=== PATIENT | female | born 1945 | race Caucasian/White ===

== ENCOUNTER 2018-12-22 18:29 | Emergency (ER) | payer MEDICARE, BC ==
[~2018-12-22] VITALS: Ht 167.6 cm; Wt 71.7 kg
[~2018-12-22 18:29] MED LIST: ASPI325 PO; CALCIT950 PO; CHOL10002; CYCL0.05OP; Estriol0.1 GM VAG; FERR325 PO; FLUSAL1005 IH; HYDCHLSU PO; IPRAOI; IPRAOI INH; LOTE.5SUSP BOTHEYES; METO25ER PO; OMEG1CAP30 PO; VERAMYST
[2018-12-22 19:16] LABS: BASOPHILS ABSOLUTE AUTO 0.04 K/mm3 (0.00-0.23); BASOPHILS PERCENT AUTO 1 % (0-2); EOSINOPHILS ABSOLUTE AUTO 0.03 K/mm3 (0.00-0.68); EOSINOPHILS PERCENT AUTO 1 % (0-6); Hematocrit 40.6 % (33.0-51.0); Hemoglobin 13.4 g/dL (11.5-16.0); IMMATURE GRAN ABSOLUTE AUTO 0.01 K/mm3 (0.00-0.10); IMMATURE GRAN PERCENT AUTO 0 % (0-1); LYMPHOCYTES PERCENT AUTO 50 % (21-46); MONOCYTES ABSOLUTE AUTO 0.95 K/mm3 (0.16-1.47); MONOCYTES PERCENT AUTO 20 % (4-13); Mean Corpuscular HGB 31.8 pg (26.0-34.0); Mean Corpuscular Volume 96 fL (80-100); Mean Platelet Volume 10.4 fL (9.1-12.4); NEUTROPHILS ABSOLUTE AUTO 1.37 K/mm3 (1.96-9.15); NEUTROPHILS PERCENT AUTO 29 % (41-73); Platelet Count 177 K/mm3 (150-400); RDW Standard Deviation 46.2 fL (35.1-46.3); Red Blood Cell Count 4.22 M/mm3 (3.80-5.20)
[2018-12-22 19:33] LABS: Troponin I 0.025 ng/mL (0.000-0.040)
[2018-12-22 19:35] LABS: Alanine Aminotransfer (ALT/SGP 27 U/L (12-78); Albumin, Blood 2.8 g/dL (3.4-5.0); Albumin/Globulin Ratio 0.8 (0.8-1.8); Alk Phos 71 U/L (50-136); Anion Gap 8 mmol/L (6-16); Aspartate Aminotrans (AST/SGOT 34 U/L (12-37); Bilirubin, Total 0.3 mg/dL (0.1-1.0); Blood Urea Nitrogen 19 mg/dL (8-24); CO2, Blood 26 mmol/L (21-32); Chloride, Blood 104 mmol/L (98-108); Creatinine, Blood 0.86 mg/dL (0.40-1.00); Globulin, Blood 3.5 g/dL (2.2-4.0); Glomerular Filtration Rate >60 (60-); Glucose, Blood 112 mg/dL (70-99); Potassium, Blood 3.2 mmol/L (3.5-5.5); Sodium, Blood 138 mmol/L (136-145); Total Protein, Blood 6.3 g/dL (6.4-8.2)
== END 2018-12-22 22:08 | disposition home or self-care (01) ==
LOC: ER 18:29
PROVIDERS: Emergency Medicine
DX: R55 Syncope and collapse (principal); E86.0 Dehydration; J98.4 Other disorders of lung; Z79.899 Other long term (current) drug therapy; Z79.82 Long term (current) use of aspirin; J45.909 Unspecified asthma, uncomplicated; I48.91 Unspecified atrial fibrillation; E78.5 Hyperlipidemia, unspecified; Z87.891 Personal history of nicotine dependence
CPT/HCPCS: 80053; 83690; 84484; 85025; 93005; 93010; 99284-25; J7120

== ENCOUNTER → 2019-06-25 | Outpatient (CLI) | payer MEDICARE, BC ==
[2019-06-25 16:25] LABS: Source, Urine Clean Catch
[2019-06-25 17:57] LABS: Appearance, Urine Cloudy (Clear); Bilirubin, Urine Neg (Neg); Blood, Urine 1+ (Neg); Color, Urine Yellow (P-Yellow); Glucose Qualitative, Urine Neg (Neg); Ketones, Urine 1+ (Neg); Leukocyte Esterase, Urine 3+ (Neg); Nitrite, Urine Pos (Neg); Protein, Urine 2+ (Neg); Specific Gravity, Urine 1.015 (1.003-1.022); Urobilinogen, Urine 1+ (Normal)
[2019-06-25 18:08] LABS: Bacteria Many /hpf; Red Blood Cells, Urine 0-2 /hpf (0-2); Squamous Epithelial Cells Few /hpf (Few); White Blood Cells, Urine TNTC /hpf (0-5)
== END | disposition home or self-care (01) ==
LOC: LAB 15:49 → LAB SHORT 15:49
PROVIDERS: Obstetrics & Gynecology
DX: R30.0 Dysuria (principal)
CPT/HCPCS: 81001; 87077; 87086; 87186

== ENCOUNTER → 2019-08-20 | Outpatient (CLI) | payer MEDICARE, BC ==
[2019-08-20 17:10] LABS: U Amphetamine Screen Not Detected; U Barbituate Screen Not Detected; U Benzodiazapine Screen Not Detected; U Buprenorphine Screen Not Detected; U Cannabinoids Screen Not Detected; U Cocaine Screen Not Detected; U Methadone Screen Not Detected; U Methamphetamine Screen Not Detected; U Opiates Screen Not Detected; U Oxycodone Screen Not Detected; U Phencyclidine Screen Not Detected; U Propoxyphene Screen Not Detected
== END | disposition home or self-care (01) ==
LOC: OLS 12:00 → LAB SHORT 12:00 → LAB FUT 08-19 19:00
PROVIDERS: Internal Medicine
DX: Z51.81 Encounter for therapeutic drug level monitoring (principal); Z79.891 Long term (current) use of opiate analgesic

== ENCOUNTER → 2019-08-27 | Outpatient (CLI) | payer MEDICARE, BC ==
[2019-08-27 17:20] LABS: Source, Urine Clean Catch
[2019-08-27 18:54] LABS: Bilirubin, Urine Neg (Neg); Blood, Urine 4+ (Neg); Glucose Qualitative, Urine Neg (Neg); Ketones, Urine Neg (Neg); Leukocyte Esterase, Urine 2+ (Neg); Nitrite, Urine Neg (Neg); Protein, Urine 1+ (Neg); Urobilinogen, Urine NORM (Normal)
[2019-08-27 19:10] LABS: Appearance, Urine Clear (Clear); Color, Urine Yellow (P-Yellow)
[2019-08-27 19:11] LABS: Bacteria Many /hpf; Squamous Epithelial Cells Rare /hpf (Few); White Blood Cells, Urine 50-100 /hpf (0-5)
== END | disposition home or self-care (01) ==
LOC: LAB 16:40 → LAB SHORT 16:40
PROVIDERS: Obstetrics & Gynecology
DX: R30.9 Painful micturition, unspecified (principal); N39.0 Urinary tract infection, site not specified
CPT/HCPCS: 81001; 87077; 87086; 87186

== ENCOUNTER → 2019-09-24 | Outpatient (CLI) | payer MEDICARE, BC ==
[2019-09-24 16:54] LABS: Source, Urine Clean Catch
[2019-09-24 18:18] LABS: Bilirubin, Urine Neg (Neg); Blood, Urine 5+ (Neg); Glucose Qualitative, Urine Neg (Neg); Ketones, Urine 1+ (Neg); Leukocyte Esterase, Urine 3+ (Neg); Nitrite, Urine Pos (Neg); Protein, Urine 4+ (Neg); Specific Gravity, Urine 1.015 (1.003-1.022); Urobilinogen, Urine 2+ (Normal)
[2019-09-24 18:34] LABS: Appearance, Urine Cloudy (Clear); Color, Urine Amber (P-Yellow)
[2019-09-24 18:36] LABS: Bacteria Many /hpf; Calcium Oxalate Crystals Few /hpf; Red Blood Cells, Urine TNTC /hpf (0-2); Squamous Epithelial Cells Few /hpf (Few); Transitional Epithelial Cells Few /hpf (0-Rare); White Blood Cells, Urine TNTC /hpf (0-5)
== END ==
LOC: LAB 14:30 → LAB SHORT 14:30
PROVIDERS: Obstetrics & Gynecology
DX: R31.9 Hematuria, unspecified (principal)
CPT/HCPCS: 81001; 87077; 87086; 87186

== ENCOUNTER 2019-10-09 15:40 | Emergency (ER) | payer MEDICARE, BC ==
[~2019-10-09] VITALS: Ht 170.2 cm; Wt 72.6 kg
[2019-10-09] MEDS ORDERED: LIDO700A20 TOP (18:16)
== END 2019-10-09 18:30 | disposition home or self-care (01) ==
LOC: ER 15:40
DX: S22.32XA Fracture of one rib, left side, initial encounter for closed fracture (principal); J45.909 Unspecified asthma, uncomplicated; I48.91 Unspecified atrial fibrillation; E78.5 Hyperlipidemia, unspecified; Z79.899 Other long term (current) drug therapy; Z79.82 Long term (current) use of aspirin; Z87.891 Personal history of nicotine dependence; W01.0XXA Fall on same level from slipping, tripping and stumbling without subsequent striking against object, initial encounter
CPT/HCPCS: 71046; 71120; 99283-25

== ENCOUNTER → 2019-10-30 | Outpatient (CLI) | payer MEDICARE, BC ==
[~2019-10-30] MED LIST changes: +LIDO700A20 TOP
== END | disposition home or self-care (01) ==
LOC: LAB SHORT 18:06 → LAB EV 18:06
DX: N39.0 Urinary tract infection, site not specified (principal)
CPT/HCPCS: 87077; 87086; 87186

== ENCOUNTER 2020-02-25 15:33 | Emergency (ER) | payer MEDICARE, BC ==
[~2020-02-25] VITALS: Ht 165.1 cm; Wt 72.6 kg
[2020-02-25 16:15] LABS: BASOPHILS ABSOLUTE AUTO 0.07 K/mm3 (0.00-0.23); BASOPHILS PERCENT AUTO 1 % (0-2); EOSINOPHILS ABSOLUTE AUTO 0.21 K/mm3 (0.00-0.68); EOSINOPHILS PERCENT AUTO 3 % (0-6); Hematocrit 46.4 % (33.0-51.0); Hemoglobin 15.8 g/dL (11.5-16.0); IMMATURE GRAN ABSOLUTE AUTO 0.01 K/mm3 (0.00-0.10); IMMATURE GRAN PERCENT AUTO 0 % (0-1); LYMPHOCYTES ABSOLUTE AUTO 2.78 K/mm3 (0.84-5.20); LYMPHOCYTES PERCENT AUTO 43 % (21-46); MONOCYTES ABSOLUTE AUTO 0.71 K/mm3 (0.16-1.47); MONOCYTES PERCENT AUTO 11 % (4-13); Mean Corpuscular HGB 32.2 pg (26.0-34.0); Mean Corpuscular HGB Conc 34.1 g/dL (31.5-36.5); Mean Corpuscular Volume 95 fL (80-100); Mean Platelet Volume 10.2 fL (9.1-12.4); NEUTROPHILS ABSOLUTE AUTO 2.67 K/mm3 (1.96-9.15); NEUTROPHILS PERCENT AUTO 41 % (41-73); Platelet Count 224 K/mm3 (150-400); RDW Coefficient Variation 12.8 % (11.7-14.2); Red Blood Cell Count 4.91 M/mm3 (3.80-5.20); White Blood Cell Count 6.45 K/mm3 (4.00-11.30)
[2020-02-25 16:38] LABS: Alanine Aminotransfer (ALT/SGP 20 U/L (12-78); Albumin, Blood 3.5 g/dL (3.4-5.0); Albumin/Globulin Ratio 0.9 (0.8-1.8); Alk Phos 100 U/L (50-136); Anion Gap 3 mmol/L (6-16); Aspartate Aminotrans (AST/SGOT 15 U/L (12-37); Bilirubin, Total 0.5 mg/dL (0.1-1.0); Blood Urea Nitrogen 22 mg/dL (8-24); Bun/Creatinine Ratio 35.4 (12.0-20.0); CO2, Blood 30 mmol/L (21-32); Calcium, Blood 9.7 mg/dL (8.5-10.1); Chloride, Blood 105 mmol/L (98-108); Creatinine, Blood 0.62 mg/dL (0.40-1.00); Globulin, Blood 4.1 g/dL (2.2-4.0); Glomerular Filtration Rate >60 (60-); Glucose, Blood 107 mg/dL (70-99); Potassium, Blood 3.7 mmol/L (3.5-5.5); Sodium, Blood 138 mmol/L (136-145); Total Protein, Blood 7.6 g/dL (6.4-8.2); Troponin I <0.015 ng/mL (0.000-0.040)
== END 2020-02-25 18:07 | disposition home or self-care (01) ==
LOC: ER 15:33
PROVIDERS: Physician Assistant
DX: R00.1 Bradycardia, unspecified (principal); R53.83 Other fatigue; I48.91 Unspecified atrial fibrillation; E78.5 Hyperlipidemia, unspecified; J44.9 Chronic obstructive pulmonary disease, unspecified; Z79.899 Other long term (current) drug therapy; Z79.82 Long term (current) use of aspirin; Z86.718 Personal history of other venous thrombosis and embolism; Z87.891 Personal history of nicotine dependence
CPT/HCPCS: 71046; 80053; 84484; 85025; 93005; 93010; 99284-25

== ENCOUNTER 2020-05-12 13:08 | Day surgery (SDC) | payer MEDICARE, BC ==
[~2020-05-12] VITALS: Ht 165.1 cm; Wt 70.6 kg
[~2020-05-12 13:08] MED LIST changes: +XARELTO20 MG PO
--- NOTE | 2020-05-12 15:48 | NUR ---
05/12/20 1548 Gloria Coats PT BEGINS COUGHING SHORTLY AFTER FIRST DOSE OF PROPOFOL. SUCTIONED CLEAR SECRETIONS. PT CONTINUES TO COUGH THROUGHOUT PROCEDURE. SUCTION DONE NECESSARY, CLEAR SECRETION. PT CLAMPED DOWN ON TONGUE AT ONE POINT AND A SMALL AMOUNT OF BLOOD WAS NOTED IN SUCTION TUBING. DISCUSSED SAME WITH PATIENT AND SHE DENIED ANY PAIN OR SHORTNESS OF BREATH. LUNGS CLEAR IMMEDIATELY POST PROCEDURE AND AGAIN 20 MINUTES LATER. PT NO LONGER COUGHING WHILE BACK IN ROOM. PT DENIES ANY PAIN OR DISCOMFORT, AND THERE WAS NO BLOOD NOTED IN MOUTH POST PROCEDURE.
== END 2020-05-12 15:29 | disposition home or self-care (01) ==
LOC: ORSCSDS 13:08
PROVIDERS: Surgery
PROC: 0DJD8ZZ Inspection of Lower Intestinal Tract, Via Natural or Artificial Opening Endoscopic (ICD-10-PCS; principal; 2020-05-12 14:15)
DX: Z12.11 Encounter for screening for malignant neoplasm of colon (principal); Z87.891 Personal history of nicotine dependence; J45.909 Unspecified asthma, uncomplicated; I48.0 Paroxysmal atrial fibrillation; E78.5 Hyperlipidemia, unspecified; E21.3 Hyperparathyroidism, unspecified; Z79.01 Long term (current) use of anticoagulants; Z79.899 Other long term (current) drug therapy
CPT/HCPCS: J2704; J7120

== ENCOUNTER 2020-12-30 06:36 | Day surgery (SDC) | payer MEDICARE, BC ==
[~2020-12-30] VITALS: Ht 167.6 cm; Wt 75.9 kg
== END 2020-12-30 08:02 | disposition home or self-care (01) ==
LOC: ORSCSDS 06:36
PROVIDERS: Ophthalmology
PROC: 08RK3JZ Replacement of Left Lens with Synthetic Substitute, Percutaneous Approach (ICD-10-PCS; principal; 2020-12-30 07:30)
DX: H25.12 Age-related nuclear cataract, left eye (principal); I10 Essential (primary) hypertension; I48.0 Paroxysmal atrial fibrillation; G47.33 Obstructive sleep apnea (adult) (pediatric); Z79.01 Long term (current) use of anticoagulants; Z79.899 Other long term (current) drug therapy
CPT/HCPCS: J2001; J2250; J3301; J7040; V2632

== ENCOUNTER 2021-05-19 07:28 | Day surgery (SDC) | payer MEDICARE, BC ==
[~2021-05-19] VITALS: Ht 167.6 cm; Wt 75.3 kg
--- NOTE | 2021-05-19 07:39 | NUR ---
05/19/21 0739 Leyla Oneill TETRACAINE DROP PLACED IN RIGHT EYE AT 0739 BY [facility].CB
== END 2021-05-19 09:29 | disposition home or self-care (01) ==
LOC: ORSCSDS 07:28
PROVIDERS: Ophthalmology
PROC: 08RJ3JZ Replacement of Right Lens with Synthetic Substitute, Percutaneous Approach (ICD-10-PCS; principal; 2021-05-19 08:30)
DX: H25.11 Age-related nuclear cataract, right eye (principal); I48.91 Unspecified atrial fibrillation; J45.909 Unspecified asthma, uncomplicated; Z79.01 Long term (current) use of anticoagulants; Z79.899 Other long term (current) drug therapy
CPT/HCPCS: J2001; J2250; J3010; J3301; J7040; V2632

== ENCOUNTER 2022-07-20 02:55 | Emergency (ER) | payer MEDICARE, BC ==
[~2022-07-20] VITALS: Ht 165.1 cm; Wt 65.8 kg
[2022-07-20] MEDS ORDERED: XARELTO20 M1 PO (03:33)
== END 2022-07-20 06:08 | disposition home or self-care (01) ==
LOC: ER 02:55
DX: R04.0 Epistaxis (principal); J45.909 Unspecified asthma, uncomplicated; I48.91 Unspecified atrial fibrillation; E78.5 Hyperlipidemia, unspecified; Z87.891 Personal history of nicotine dependence; Z79.01 Long term (current) use of anticoagulants; Z79.899 Other long term (current) drug therapy
CPT/HCPCS: A9270

== ENCOUNTER → 2022-12-07 | Outpatient (CLI) | payer MEDICARE, BC ==
[~2022-12-07] MED LIST changes: +XARELTO20 M1 PO
[2022-12-07 18:47] LABS: BASOPHILS ABSOLUTE AUTO 0.07 K/mm3 (0.00-0.23); BASOPHILS PERCENT AUTO 1 % (0-2); EOSINOPHILS ABSOLUTE AUTO 0.27 K/mm3 (0.00-0.68); EOSINOPHILS PERCENT AUTO 4 % (0-6); Hematocrit 37.2 % (33.0-51.0); IMMATURE GRAN ABSOLUTE AUTO 0.03 K/mm3 (0.00-0.10); IMMATURE GRAN PERCENT AUTO 0 % (0-1); LYMPHOCYTES PERCENT AUTO 30 % (21-46); MONOCYTES ABSOLUTE AUTO 0.94 K/mm3 (0.16-1.47); MONOCYTES PERCENT AUTO 12 % (4-13); Mean Corpuscular HGB 26.8 pg (26.0-34.0); Mean Corpuscular HGB Conc 32.3 g/dL (31.5-36.5); Mean Corpuscular Volume 83 fL (80-100); Mean Platelet Volume 10.1 fL (9.1-12.4); NEUTROPHILS ABSOLUTE AUTO 4.08 K/mm3 (1.96-9.15); NEUTROPHILS PERCENT AUTO 53 % (41-73); Platelet Count 243 K/mm3 (150-400); RDW Coefficient Variation 19.2 % (11.7-14.2); RDW Standard Deviation 57.1 fL (35.1-46.3); Red Blood Cell Count 4.48 M/mm3 (3.80-5.20); White Blood Cell Count 7.69 K/mm3 (4.00-11.30)
[2022-12-07 19:06] LABS: Albumin, Blood 3.7 g/dL (3.4-5.0); Albumin/Globulin Ratio 0.9 (0.8-1.8); Bilirubin, Total 0.3 mg/dL (0.1-1.0); Bun/Creatinine Ratio 28.2 (12.0-20.0); Calcium, Blood 9.7 mg/dL (8.5-10.1); Creatinine, Blood 0.71 mg/dL (0.40-1.00); Globulin, Blood 4.2 g/dL (2.2-4.0); Potassium, Blood 4.1 mmol/L (3.5-5.5); Thyroid Stimulating Hormone 1.388 uIU/mL (0.360-4.800); Total Protein, Blood 7.9 g/dL (6.4-8.2)
== END | disposition home or self-care (01) ==
LOC: LAB SHORT 18:41
PROVIDERS: Physician Assistant
DX: R07.9 Chest pain, unspecified (principal); R53.83 Other fatigue
CPT/HCPCS: 80053; 84443; 84484; 85025

== ENCOUNTER → 2023-01-04 | Outpatient (CLI) | payer MEDICARE, BC ==
[2023-01-05 09:45] LABS: Stool Occult Bld Immuno 1 Negative (NEGATIVE)
== END | disposition home or self-care (01) ==
LOC: LAB 12:00 → LAB SHORT 12:00
PROVIDERS: Physician Assistant Medical
DX: D50.9 Iron deficiency anemia, unspecified (principal)
CPT/HCPCS: 82274

== ENCOUNTER → 2023-01-11 | Outpatient (CLI) | payer MEDICARE, BC ==
[2023-01-12 09:33] LABS: Stool Occult Bld Immuno 1 Negative (NEGATIVE)
== END | disposition home or self-care (01) ==
LOC: LAB SHORT 12:00 → LAB 12:00 → EDSTATUS 12-05 14:05 → LAB FUT 12-05 14:05
PROVIDERS: Physician Assistant Medical
DX: D50.9 Iron deficiency anemia, unspecified (principal)
CPT/HCPCS: G0328

== ENCOUNTER 2023-07-26 14:05 | Inpatient (IN) | payer MEDICARE, BC ==
[2023-07-26] MEDS ORDERED: WIXELA 250-501 EAC1 IH (15:11)
[2023-07-26] MEDS ORDERED: HYDROCODONE CO120 ML PO (15:15)
[2023-07-26 17:29] LABS: Adenovirus Not Detected (NOT DETECT); Bordetella pertussis Not Detected (NOT DETECT); Chlamydophila pneumoniae Not Detected (NOT DETECT); Coronavirus 229E Not Detected (NOT DETECT); Coronavirus HKU1 Not Detected (NOT DETECT); Coronavirus NL63 Not Detected (NOT DETECT); Coronavirus OC43 Not Detected (NOT DETECT); Human Metapneumovirus Not Detected (NOT DETECT); Human Rhinovirus/Enterovirus Not Detected (NOT DETECT); Influenza A/2009-H1 Not Detected (NOT DETECT); Influenza A/H1 Not Detected (NOT DETECT); Influenza A/H3 Not Detected (NOT DETECT); Influenza B Not Detected (NOT DETECT); Mycoplasma pneumoniae Not Detected (NOT DETECT); Parainfluenza Virus 1 Not Detected (NOT DETECT); Parainfluenza Virus 2 Not Detected (NOT DETECT); Parainfluenza Virus 3 Not Detected (NOT DETECT); Parainfluenza Virus 4 Not Detected (NOT DETECT); Respiratory Syncytial Virus Not Detected (NOT DETECT); SARS-Cov-2 (COVID-19), BioFire Not Detected (NOT DETECT)
[2023-07-26 17:38] VITALS: BP 154/83
--- NOTE | 2023-07-26 17:55 | NUR ---
PT CHART REVEIWED FRO ADMISSION
[2023-07-26 19:26] VITALS: BP 138/85
[2023-07-27 01:32] VITALS: BP 136/66
[2023-07-27 02:53] LABS: Source, Urine Clean Catch
[2023-07-27 02:58] LABS: Bilirubin, Urine Neg (Neg); Blood, Urine 4+ (Neg); Glucose Qualitative, Urine Neg (Neg); Ketones, Urine Neg (Neg); Leukocyte Esterase, Urine 1+ (Neg); Nitrite, Urine Pos (Neg); Protein, Urine 2+ (Neg); Urobilinogen, Urine NORM (Normal)
[2023-07-27 03:06] LABS: Appearance, Urine Hazy (Clear); Bacteria Many /hpf; Color, Urine Yellow (P-Yellow); Red Blood Cells, Urine 0-2 /hpf (0-2); Squamous Epithelial Cells Few /hpf (Few)
--- NOTE | 2023-07-27 04:28 | NUR ---
SHIFT SUMMARY JAKE IS ALERT AND FULLY ORIENTED WITH VERY MILD INTERMITTENT CONFUSION. PT STATED SHE HAD BEEN DEHYDRATED, NS INFUSION STARTED PER EMAR, PT STATES SHE HADNT VOIDED FOR 24 HRS. PT HAD DYSURIA AND WAS BLADDER SCANNED AND FOUND TO HAVE 542ML RETAINED URINE. CALL WAS MADE TO DR CHAPMAN AND AN ORDER WAS RECIEVED TO STRAIGHT CATH IF NECESSARY, AND ALSO TO COLLECT UA. PT EVENTUALLY MANAGED TO VOID 300ML AND CLEAN CATCH URINE SAMPLE WAS SENT TO LAB. NO OTHER ACUTE EVENTS. PT CONTINUES TO HAVE A NON PRODUCTIVE COUGH, RT CONSULTED. SHE IS MAINTAINING O2 SATS IN THE 90S ON 3L O2 VIA NC. PT IS RESTING IN BED IN LOWEST POSITION WITH CALL LIGHT IN PLACE.
--- NOTE | 2023-07-27 05:13 | NUR ---
THIS OUTSOLE SPLICER HAS REVIEWED AND AGREE WITH ALL NOTES AND ASSESSMENTS BY DOMINGO GONZALEZ.
[2023-07-27 07:20] VITALS: BP 150/73
--- NOTE | 2023-07-27 10:53 | NUR ---
NOTE: NOTIFIED BY TELE THAT THE PT HAD WONDERING ATRIAL. PER [employer], WANDERING ATRIAL APPEARED ON THE STRIP. PROVIDER, DR. HERNANDEZ, NOTIFIED AND EKG WILL BE ORDERED.
[2023-07-27 16:54] VITALS: BP 123/64
--- NOTE | 2023-07-27 17:08 | NUR ---
SHIFT SUMMARY PT AOX3-4, A LITTLE CONFUSED UPON WAKING. PT HAS BEEN NAPPING MOST OF THE SHIFT. SHE HAD HAD NO COMPLAINTS. SHE HAS BEEN VOIDING WELL USING THE BSC. PT MEDICATED PER THE EMAR FOR COUGH. PT'S SISTER HAS BEEN AT THE BS THIS SHIFT. CALL LIGHT WITHIN REACH, BED IN THE LOWEST POSITION. WILL REPORT TO ONCOMING NURSE.
[2023-07-27 19:26] VITALS: BP 157/83
[2023-07-28 02:53] VITALS: BP 141/77
--- NOTE | 2023-07-28 05:31 | NUR ---
SHIFT SUMMARY PRN COUGH MEDICATION GIVEN PER PT REQUEST, AMBULATING TO BEDSIDE COMMODE INDEPENDENTLY, VOIDING WITH NO DIFFICULTIES. NO OTHER COMPLAINTS, NO C/O PAIN. FIRE SAFETY REVIEWED, NO IGNITION SOURCES.
[2023-07-28 08:01] VITALS: BP 136/53
[2023-07-28 15:12] VITALS: BP 143/66
--- NOTE | 2023-07-28 17:56 | NUR ---
SHIFT SUMMARY PT A&OX4 AND PLEASANT. PT VERBILZED FEELING VERY TIRED D/T NOT SLEEPING WELL LAST NIGHT. PT ABLE NAP FOR A COUPLE HOURS IN AFTERNOON. NO C/O PAIN. PT STATED STILL FEELING SOB AND NOT BACK TO HER BASELINE YET BUT DID SAY SHE FELT IMPROVED FROM WHEN SHE FIRST ARRIVED. DR HERNANDEZ WOULD LIKE TO TRY TITRATING PT'S OXYGEN DOWN BUT PT STATED SHE DID NOT FEEL READY TO TRY TODAY. EKG DONE AT BEDSIDE TODAY. RESULTS IN CHART. INDPENDENT TO BSC. BED IN LOWEST POSITION AND CALL LIGHT IN REACH.
--- NOTE | 2023-07-28 19:01 | NUR ---
PT HAD 6 SECOND RUN OF SVT IN AFTERNOON, PER [facility] TECH. DR HERNANDEZ AWARE.
[2023-07-28 19:32] VITALS: BP 160/83
--- NOTE | 2023-07-29 04:18 | NUR ---
REPORT RECEIVED VERIFIED PLEASENT PT 2 L NS TO MAINTAIN O2>90. UNEVENTFUL EVENING, RT WAS ABLE TO SITUATE HOME MEDS AND I PLACCED ORDER FOR THEM. PT CALLS AND IS COOPERATIVE WITH CARE.
[2023-07-29 04:57] VITALS: BP 158/74
[2023-07-29 07:20] VITALS: BP 177/61
[2023-07-29 14:48] VITALS: BP 161/68
--- NOTE | 2023-07-29 18:22 | NUR ---
SUMMARY- PT A/O X4, INDEPENDANT TO BEDSIDE COMMODE. ASSISTED WITH SHOWER SET UP. LUNGS DIM LOWER HALF. OCC BARKING COUGH. MEDICATED WITH TUSSIONEX AT 1030 THIS AM, MAY HAVE BEEN HELPFUL. PT ON 3L NC THIS AM, SATTING HIGH 90'S, TURNED DOWN TO 2L THAN TO ROOM AIR, STAYED AT 90%, AFTER SHOWERING, PT TOLERATED ACTIVITY FINE WITH NO NOTIBLE SOB, STATES SHE FELT GREAT, SATS CAME DOWN TO 86% SO REPLACED O2 2L NC, SATS 95%. PLAN TO RE EVAL [place] FOR DC HOPEFULLY WITHOUT OXYGEN. WILL REPORT TO ASHISH LANE.
[2023-07-29 19:59] VITALS: BP 193/80
[2023-07-30 04:25] VITALS: BP 157/85
[2023-07-30 05:01] LABS: Hemoglobin 12.1 g/dL (11.5-16.0); Mean Corpuscular HGB 29.2 pg (26.0-34.0); Mean Corpuscular HGB Conc 33.6 g/dL (31.5-36.5); Mean Corpuscular Volume 87 fL (80-100); Mean Platelet Volume 9.8 fL (9.1-12.4); Platelet Count 335 K/mm3 (150-400); RDW Coefficient Variation 14.7 % (11.7-14.2); RDW Standard Deviation 47.5 fL (35.1-46.3); Red Blood Cell Count 4.15 M/mm3 (3.80-5.20); White Blood Cell Count 9.42 K/mm3 (4.00-11.30)
[2023-07-30 05:39] LABS: Bun/Creatinine Ratio 20.6 (12.0-20.0); Calcium, Blood 9.2 mg/dL (8.5-10.1); Creatinine, Blood 0.39 mg/dL (0.40-1.00); Potassium, Blood 3.7 mmol/L (3.5-5.5)
--- NOTE | 2023-07-30 06:48 | NUR ---
FREQUENTLY REMOVES NC INDEPENDENTLY, DENIES SIGNIFICANT SOB BUT OCCASIONAL COARSE/PRODUCTIVE COUGH NOTED. HYPERTENSIVE AT TIMES BUT GENERALLY VSS ON 1-2 L NC. PLEASANT, AOX4, CALLS APPROPRIATELY, SBA TO BSC FOR BM. 1 3 BEAT RUN OF SVT AFTER WHICH THE PATIENT DENIED SYMPTOMS. NO ACUTE CHANGES NOTED DURING SHIFT. FIRE SAFETY REVIEWED.
[2023-07-30 07:28] VITALS: BP 161/89
--- NOTE | 2023-07-30 09:00 | NUR ---
pt resting in bed awake a/ox4 cooperative with care, follows commands well, denies pain at this time, lungs are dim t/o, on 2 liters 02 at this time, has an occ course cough, resp even and unlabored, hrirr, tele in place running afib per monitor, see strip, no edema noted, ppp+2, cap refill <3sec, vs stable, afebrile, piv site is clear and patent, btx4, abd flat soft nontender, voids without diff, skin c/w/d, maew, sosa, call light in reach.
[2023-07-30] MEDS ORDERED: GUAI600T33 PO (12:02)
[2023-07-30] MEDS ORDERED: VISBIOME 112.51 EACH PO (12:02)
[2023-07-30] MEDS ORDERED: AMOCLA875 PO (12:02)
--- NOTE | 2023-07-30 12:12 | NUR ---
Pt is being discharged to home, had home o2 eval and needs o2, this is being arranged by charge nurse, iv removed intact, will go over instructions lawrence, new medications were faxed to [facility], call light in reach.
--- NOTE | 2023-07-30 18:44 | NUR ---
pt o2 is here, daughter here to take her home via wheelchair, iv was removed intact, went over discharge instructions she verbalized understanding, new meds faxed to [facility], left via wheelchair with daughter in attendence, and all her belongings.
== END 2023-07-30 18:30 | disposition home or self-care (01) | DRG 871 ==
LOC: ER 14:05 → MEDS 15:42
PROVIDERS: Internal Medicine; ADMIT Internal Medicine
DX: A41.9 Sepsis, unspecified organism (principal); J18.9 Pneumonia, unspecified organism; J96.01 Acute respiratory failure with hypoxia; I48.20 Chronic atrial fibrillation, unspecified; J44.0 Chronic obstructive pulmonary disease with (acute) lower respiratory infection; E87.1 Hypo-osmolality and hyponatremia; I48.91 Unspecified atrial fibrillation; E78.5 Hyperlipidemia, unspecified; Z20.822 Contact with and (suspected) exposure to COVID-19; Z86.718 Personal history of other venous thrombosis and embolism; Z79.01 Long term (current) use of anticoagulants; Z79.52 Long term (current) use of systemic steroids; Z96.659 Presence of unspecified artificial knee joint; Z90.10 Acquired absence of unspecified breast and nipple; Z98.890 Other specified postprocedural states; Z87.891 Personal history of nicotine dependence
CPT/HCPCS: 0202U; 36415; 71046; 80048; 80053; 81001; 84145; 85025; 85027; 87040; 87086; 93005; 93010; 94640; 94664; 94762; 96365; 99285-25; A9270; J0696; J7030; J7050

== ENCOUNTER → 2024-07-28 | Outpatient (CLI) | payer MEDICARE, BC ==
[~2024-07-28] MED LIST changes: +AMOCLA875 PO; +AZIT500 PO; +CEFP200 PO; +CHLORPHENIRAMINE; +DILT180 PO; +GUAI600T33 PO; +HYDROCODONE; +HYDROCODONE CO120 ML PO; +PRED20 PO; +SPIRIVA RESPIMAT4 G3 IH; +VISBIOME 112.51 EACH PO; +WIXELA 250-501 EAC1 IH
[2024-07-28 12:29] LABS: BASOPHILS ABSOLUTE AUTO 0.03 K/mm3 (0.00-0.23); BASOPHILS PERCENT AUTO 0 % (0-2); EOSINOPHILS PERCENT AUTO 0 % (0-6); Hematocrit 41.3 % (33.0-51.0); Hemoglobin 13.9 g/dL (11.5-16.0); IMMATURE GRAN ABSOLUTE AUTO 0.08 K/mm3 (0.00-0.10); IMMATURE GRAN PERCENT AUTO 1 % (0-1); LYMPHOCYTES ABSOLUTE AUTO 0.85 K/mm3 (0.84-5.20); LYMPHOCYTES PERCENT AUTO 7 % (21-46); MONOCYTES ABSOLUTE AUTO 1.11 K/mm3 (0.16-1.47); MONOCYTES PERCENT AUTO 10 % (4-13); Mean Corpuscular HGB 30.2 pg (26.0-34.0); Mean Corpuscular HGB Conc 33.7 g/dL (31.5-36.5); Mean Corpuscular Volume 90 fL (80-100); Mean Platelet Volume 10.2 fL (9.1-12.4); NEUTROPHILS ABSOLUTE AUTO 9.65 K/mm3 (1.96-9.15); NEUTROPHILS PERCENT AUTO 82 % (41-73); Platelet Count 238 K/mm3 (150-400); RDW Coefficient Variation 14.9 % (11.7-14.2); RDW Standard Deviation 48.7 fL (35.1-46.3); Red Blood Cell Count 4.61 M/mm3 (3.80-5.20); White Blood Cell Count 11.72 K/mm3 (4.00-11.30)
[2024-07-28 12:47] LABS: Albumin/Globulin Ratio 0.6 (0.8-1.8); Bilirubin, Total 0.6 mg/dL (0.1-1.0); Bun/Creatinine Ratio 22.4 (12.0-20.0); Calcium, Blood 9.1 mg/dL (8.5-10.1); Creatinine, Blood 0.76 mg/dL (0.40-1.00); Globulin, Blood 4.9 g/dL (2.2-4.0); Potassium, Blood 3.9 mmol/L (3.5-5.5); Total Protein, Blood 7.9 g/dL (6.4-8.2)
== END ==
LOC: LAB 12:26 → LAB SHORT 12:26
PROVIDERS: Physician Assistant
DX: J18.9 Pneumonia, unspecified organism (principal)
CPT/HCPCS: 80053; 85025

== ENCOUNTER 2024-07-29 12:23 | Inpatient (IN) | payer MEDICARE, BC ==
[~2024-07-29] VITALS: Ht 165.1 cm; Wt 64.6 kg
[~2024-07-29 12:23] MED LIST changes: -AZIT500 PO; -CEFP200 PO; -CHLORPHENIRAMINE; -DILT180 PO; -HYDROCODONE; -PRED20 PO; -SPIRIVA RESPIMAT4 G3 IH
[2024-07-29 14:12] LABS: BASOPHILS ABSOLUTE AUTO 0.03 K/mm3 (0.00-0.23); BASOPHILS PERCENT AUTO 0 % (0-2); EOSINOPHILS PERCENT AUTO 0 % (0-6); Hematocrit 40.2 % (33.0-51.0); IMMATURE GRAN ABSOLUTE AUTO 0.06 K/mm3 (0.00-0.10); IMMATURE GRAN PERCENT AUTO 1 % (0-1); LYMPHOCYTES ABSOLUTE AUTO 0.81 K/mm3 (0.84-5.20); LYMPHOCYTES PERCENT AUTO 7 % (21-46); MONOCYTES ABSOLUTE AUTO 1.29 K/mm3 (0.16-1.47); MONOCYTES PERCENT AUTO 12 % (4-13); Mean Corpuscular HGB 30.7 pg (26.0-34.0); Mean Corpuscular HGB Conc 34.8 g/dL (31.5-36.5); Mean Corpuscular Volume 88 fL (80-100); Mean Platelet Volume 10.2 fL (9.1-12.4); NEUTROPHILS ABSOLUTE AUTO 8.94 K/mm3 (1.96-9.15); NEUTROPHILS PERCENT AUTO 80 % (41-73); Platelet Count 225 K/mm3 (150-400); RDW Coefficient Variation 14.6 % (11.7-14.2); RDW Standard Deviation 46.9 fL (35.1-46.3); Red Blood Cell Count 4.56 M/mm3 (3.80-5.20); White Blood Cell Count 11.13 K/mm3 (4.00-11.30)
[2024-07-29 14:33] LABS: Albumin, Blood 2.7 g/dL (3.4-5.0); Albumin/Globulin Ratio 0.6 (0.8-1.8); Bilirubin, Total 0.4 mg/dL (0.1-1.0); Bun/Creatinine Ratio 31.9 (12.0-20.0); Calcium, Blood 9.3 mg/dL (8.5-10.1); Creatinine, Blood 0.69 mg/dL (0.40-1.00); Globulin, Blood 4.5 g/dL (2.2-4.0); Potassium, Blood 3.4 mmol/L (3.5-5.5); Total Protein, Blood 7.2 g/dL (6.4-8.2)
[2024-07-29] MEDS ORDERED: Albuterol 2.5 MG/3 ML VIAL INH SCH ×2 (15:10→17:00)
[2024-07-29] MEDS ORDERED: Azithromycin 250 MG Tab PO ONE (15:10)
[2024-07-29] MEDS ORDERED: MethylPREDNISolone Sod Succ 125 MG Vial IV ONE (15:10)
[2024-07-29] MEDS ORDERED: CefTRIAXone Sodium 1,000 MG in NS 50 ML IV ONE (15:10)
[2024-07-29] MEDS ORDERED: Ipratropium/Albuterol SulF 2.5-0.5MG/3 ML Amp INH ONE (15:10)
[2024-07-29] MEDS ORDERED: NS 500 ML IV SCH (15:20)
[2024-07-29] MEDS ORDERED: Potassium Chloride 20 MEQ/15 ML UDC PO ONE (15:20)
[2024-07-29 15:40] LABS: Base Excess Venous 4.4 mmol/L; Bicarbonate Venous 27.3 mmol/L (24.0-30.0); PCO2 Venous 45.4 mmHg (38-42); pH Blood Venous 7.41 (7.34-7.37)
[2024-07-29] MEDS ORDERED: Diltiazem HCl 5 MG / ML 5ML Vial IV ONE (16:55)
[2024-07-29] MEDS ORDERED: Acetaminophen 325 MG TABLET PO PRN (17:35)
[2024-07-29] MEDS ORDERED: Ipratropium/Albuterol SulF 2.5-0.5MG/3 ML Amp INH SCH (17:35)
[2024-07-29] MEDS ORDERED: NS 1,000 ML IV SCH (17:35)
[2024-07-29] MEDS ORDERED: Albuterol 2.5 MG/3 ML VIAL INH PRN (17:35)
[2024-07-29] MEDS ORDERED: Ondansetron HCl 2 MG / ML 2ML Vial IV PRN (17:35)
[2024-07-29] MEDS ORDERED: CHLORPHENIRAMINE (21:54)
[2024-07-29] MEDS ORDERED: HYDROCODONE (21:54)
[2024-07-29] MEDS ORDERED: SPIRIVA RESPIMAT4 G3 IH ×2 (21:54)
[2024-07-30] VITALS (7 sets, daily range): BP systolic 128–148; BP diastolic 62–97
[2024-07-30] MEDS ORDERED: MethylPREDNISolone Sod Succ 125 MG Vial IV SCH
[2024-07-30 04:59] LABS: BASOPHILS ABSOLUTE AUTO 0.02 K/mm3 (0.00-0.23); BASOPHILS PERCENT AUTO 0 % (0-2); EOSINOPHILS ABSOLUTE AUTO 0.28 K/mm3 (0.00-0.68); EOSINOPHILS PERCENT AUTO 3 % (0-6); Hematocrit 38.1 % (33.0-51.0); Hemoglobin 12.8 g/dL (11.5-16.0); IMMATURE GRAN ABSOLUTE AUTO 0.05 K/mm3 (0.00-0.10); IMMATURE GRAN PERCENT AUTO 1 % (0-1); LYMPHOCYTES ABSOLUTE AUTO 0.31 K/mm3 (0.84-5.20); LYMPHOCYTES PERCENT AUTO 4 % (21-46); MONOCYTES ABSOLUTE AUTO 0.16 K/mm3 (0.16-1.47); MONOCYTES PERCENT AUTO 2 % (4-13); Mean Corpuscular HGB 30.4 pg (26.0-34.0); Mean Corpuscular HGB Conc 33.6 g/dL (31.5-36.5); Mean Corpuscular Volume 91 fL (80-100); Mean Platelet Volume 10.7 fL (9.1-12.4); NEUTROPHILS ABSOLUTE AUTO 7.34 K/mm3 (1.96-9.15); NEUTROPHILS PERCENT AUTO 90 % (41-73); Platelet Count 236 K/mm3 (150-400); RDW Coefficient Variation 15.1 % (11.7-14.2); RDW Standard Deviation 50.3 fL (35.1-46.3); Red Blood Cell Count 4.21 M/mm3 (3.80-5.20); White Blood Cell Count 8.16 K/mm3 (4.00-11.30)
[2024-07-30 05:15] LABS: Bun/Creatinine Ratio 47.1 (12.0-20.0); Calcium, Blood 9.9 mg/dL (8.5-10.1); Creatinine, Blood 0.7 mg/dL (0.40-1.00); Potassium, Blood 4.1 mmol/L (3.5-5.5)
--- NOTE | 2024-07-30 06:17 | NUR ---
SHIFT SUMMARY/ARRIVAL TO PCU AFTER RECEIVING REPORT FROM ED RN, PATIENT TRANSFERRED TO PCU AT APPROX 0500. PATIENT ALERT, ABLE TO STAND AND TRANSFER FROM GURNEY TO BED WITH ONE PERSON ASSIST. ANSWERS ORIENTATION QUESTIONS APPROPRIATELY. PERRLA. MOVES ALL EXTREMITIES WITH GENERALIZED WEAKNESS T/O. IS PILOT POINT - HEARING AIDES AT BEDSIDE. UP TO BSC TO VOID WITH ONE PERSON ASSIST. AFEBRILE. DENIES PAIN. TELEMETRY SHOWING AFIB 90s-110s. BP STABLE, SBP 140s. CARDIZEM GTT RESTARTED PER EMAR AT 5MG/HR. DENIES CHEST PAIN, PRESSURE. IS CURRENTLY ON ROOM AIR, SATs >90%. OCCASIONAL HACKING, NONPRODUCTIVE COUGH. MILD SHORTNESS OF BREATH WITH MOBILITY. IVF INFUSING PER EMAR. CALL LIGHT IN REACH. WILL CONTINUE TO MONITOR AND REPORT TO ONCOMING RN.
[2024-07-30] MEDS ORDERED: Polyethylene Glycol 3350 17 gm PO PRN (07:45)
[2024-07-30] MEDS ORDERED: Metoprolol Succinate 25 MG TABCR PO SCH (08:00)
[2024-07-30] MEDS ORDERED: Lactobacil 2-S.Thermo-Bifido 1 1 Cap PO SCH (09:00)
[2024-07-30] MEDS ORDERED: Diltiazem HCl 180 MG Cap.CD PO SCH (09:25)
--- NOTE | 2024-07-30 12:43 | NUR ---
CARDIZEM DRIP TURNED OFF. PT IN SINUS RHYTHM WITH FREQUENT PAC'S IN THE 80'S-100'S. DR. HERNANDEZ NOTIFIED PT IS IN SINUS RHTHM WITH PAC'S AND HAS BEEN FOR THE ENTIRETY OF THIS SHIFT.
--- NOTE | 2024-07-30 16:45 | NUR ---
MET WITH PATIENT PER RN REQUEST TO FILL OUT POLST. WE REVIEWED THE OPTIONS. PATIENT ELECTED TO BE DNR. SHE WAS UNCERTIAN OF THE SECOND SECTIONS AT THIS TIME. SHE WAS REVIEWING COMFORT MEASURES VS LIMITED TREATMENT. SHE WOULD LIKE TO REVIEW THIS WITH HER DAUGHTER. WILL FOLLOW UP TOMORROW.
[2024-07-30] MEDS ORDERED: Rivaroxaban 10 MG Tab PO SCH (17:00)
[2024-07-30] MEDS ORDERED: Azithromycin 500 MG in NS 250 ML IV SCH (18:00)
[2024-07-30] MEDS ORDERED: CefTRIAXone Sodium 1,000 MG in NS 100 ML IV SCH (18:00)
--- NOTE | 2024-07-30 18:30 | NUR ---
SHIFT SUMMARY PT ALERT AND ORIENTED TO ALL. SHE DENIES CHEST PAIN/PRESSURE, NUMBNESS/TINGLING. ON TELE, SINUS RHYTHM WITH PAC'S IN THE 90'S-110'S. PT WAS ON A CARDIZEM DRIP AT 5ML/HR THIS AM. PROVIDER ADDED PO CARDIZEM AND THAT WAS STARTED THIS AFTERNOON. CARDIZEM DRIP WAS STOPPED THIS AFTERNOON AND MD NOTIFIED PT HAD BEEN IN SINUS RHYTHM WITH PAC'S THE ENTIRETY OF SHIFT. SYSTOLIC BP RANGING FROM 130'S-140'S. O2 MAINTAINING >92% ON RA. SHE DENIES ANY SOB. SHE HAS A SKIN TEAR ON HER LEFT ARM THAT WAS CLEANED AND BANDAID PLACED OVER IT. PALLITIVE CARE CONSULTED WITH PT AND HAD A STATUS CHANGE TO DNR, SEE PALLITIVE CARE NOTES. WILL CONTINUE TO MONITOR PT AND REPORT TO ANESTHESIOLOGY PHYSICIAN NURSE.
[2024-07-30] MEDS ORDERED: Docusate Sodium/Senna 1 Tab PO SCH (21:00)
[2024-07-31 03:39] LABS: Hematocrit 39.9 % (33.0-51.0); Hemoglobin 13.7 g/dL (11.5-16.0); Mean Corpuscular HGB 30.3 pg (26.0-34.0); Mean Corpuscular HGB Conc 34.3 g/dL (31.5-36.5); Mean Corpuscular Volume 88 fL (80-100); Mean Platelet Volume 10.5 fL (9.1-12.4); NRBC ABSOLUTE 0.02 K/mm3 (0.00-0.02); NRBC Auto 0.2 /100 WBC (0.0-0.2); Platelet Count 282 K/mm3 (150-400); RDW Standard Deviation 48.8 fL (35.1-46.3); Red Blood Cell Count 4.52 M/mm3 (3.80-5.20); White Blood Cell Count 11.09 K/mm3 (4.00-11.30)
[2024-07-31 03:48] VITALS: BP 151/71
[2024-07-31 04:07] LABS: Albumin, Blood 2.7 g/dL (3.4-5.0); Anion Gap 11 mmol/L (3-11); Blood Urea Nitrogen 32 mg/dL (8-24); CO2, Blood 24 mmol/L (21-32); Calcium, Blood 10.5 mg/dL (8.5-10.1); Chloride, Blood 108 mmol/L (98-108); Creatinine, Blood 0.62 mg/dL (0.40-1.00); Glomerular Filtration Rate 92 (60-); Glucose, Blood 194 mg/dL (70-99); Magnesium, Blood 2.6 mg/dL (1.6-2.4); Phosphorus, Blood 3.5 mg/dL (2.5-4.9); Potassium, Blood 3.9 mmol/L (3.5-5.5); Sodium, Blood 139 mmol/L (136-145)
--- NOTE | 2024-07-31 05:07 | NUR ---
SHIFT SUMMARY A/Ox4 AND COOPERATIVE WITH CARE. ANSWERS QUESTIONS APPROPRIATELY AND ABLE TO MAKE HER NEEDS KNOWN. NO ACUTE EVENTS OVERNIGHT. REMAINS IN SR RANGING 70-90'S T/O THE NIGHT WITH NO CP, PRESSURE OR DIZZINESS. MAINTAIN SPO2 >90% ON RA WHEN AWAKE, BUT NEEDED 1L NC WHEN ASLEEP. CONTINOUS TO ENDORSE SOME EXERTIONAL DYSPNEA BUT RECOVERS QUICKLY. ABLE TO AMBULATE TO BSC WITH MINIMAL ASSISTANCE TO VOID. NO NEW ORDERS AT THIS TIME, WILL REPORT TO ONCOMING RN. AUGUSTINE AMADOR OF THIS NOTE.
[2024-07-31 07:20] VITALS: BP 130/69
[2024-07-31 08:03] VITALS: BP 137/84
--- NOTE | 2024-07-31 10:05 | NUR ---
PATIENTS NOSE STARTED BLEEDING THIS MORNING. PRESSURE APPLIED WITH FINGERS AND TISSUES. BLEEDING DID RESOLVE WITH PRESSURE. ER TO SEND PRESSURE DEVICE IN CASE OF BLEEDING REOCCURING.
[2024-07-31 11:19] VITALS: BP 146/88
[2024-07-31 15:17] VITALS: BP 157/100
--- NOTE | 2024-07-31 15:56 | NUR ---
ASSESSED PATIENT THIS SHIFT. SHE WAS IN GOOD SPIRITS TODAY. I PROVIDED TWO COPIES ADVANCE DIRECTIVE. HER DAUGHTER WOULD LIKE TO FILL ONE OUT WELL. PROVIDED THERAPUTIC CONVERSATION. PC WILL CONTINUE TO PROVIDE SUPPORT
[2024-07-31] MEDS ORDERED: Rivaroxaban 10 MG Tab PO SCH (17:00)
--- NOTE | 2024-07-31 19:18 | NUR ---
End of shift Pt A&O x4. VSS. Spo2 > 92% on 2L NC this shift. Monitor showing SR w/ PACs, HR 70s-110. Pt w/ nosebleed this shift (see previous note). Pt reporting hx of nose bleeds sometimes lasting for hours & having to come in to ER in the past for cauterization. Nose bleed this shift stopped w/ manual pressure applied by pt. No other events this shift. Pt anticipating discharge home tomorrow.
[2024-07-31 21:19] VITALS: BP 152/79
[2024-08-01 01:10] VITALS: BP 132/64
[2024-08-01 04:33] VITALS: BP 121/58
--- NOTE | 2024-08-01 06:55 | NUR ---
NOC SHIFT SUMMARY PT ORIENTED X4, CALM AND COOPERATIVE, VSS. ABLE TO MAKE NEEDS KNOWN. UP SBA TO BSC. DENIES PAIN OR DISCOMFORT. HOME O2 EVAL AND PLAN FOR POSSIBLE DC TODAY
[2024-08-01] MEDS ORDERED: PredniSONE 20 MG Tab PO SCH (09:00)
[2024-08-01] MEDS ORDERED: Azithromycin 250 MG Tab PO SCH (09:00)
[2024-08-01 09:17] VITALS: BP 155/92
[2024-08-01] MEDS ORDERED: CEFP200 PO ×2 (11:50)
[2024-08-01] MEDS ORDERED: DILT180 PO ×2 (11:50)
[2024-08-01] MEDS ORDERED: AZIT500 PO ×2 (11:50)
[2024-08-01] MEDS ORDERED: PRED20 PO ×2 (11:51)
[2024-08-01] MEDS ORDERED: VISBIOME 112.51 EACH PO (11:52)
--- NOTE | 2024-08-01 15:05 | NUR ---
DISCHARGE HOME PT A&O X4. VSS. SPO2 > 92% ON RA. MONITOR SHOWING SR W/ PACs. MD W/ ORDERS FOR DISCHARGE. DISCHARGE INSTRUCTIONS REVIEWED W/ PT. PIVs REMOVED. PT TAKEN OUT BY WHEELCHAIR W/ BELONGINGS @ APPROX 1400.
== END 2024-08-01 14:03 | disposition home or self-care (01) | DRG 193 ==
LOC: ER 12:23 → PCU 12:24 → ERHOLD 12:24 → PCU 07-30 04:59
PROVIDERS: Emergency Medicine; Internal Medicine; Nurse Practitioner Acute Care; Student in an Organized Health Care Education/Training Program; ADMIT Student in an Organized Health Care Education/Training Program
DX: J18.9 Pneumonia, unspecified organism (principal); J96.21 Acute and chronic respiratory failure with hypoxia; E87.1 Hypo-osmolality and hyponatremia; J44.0 Chronic obstructive pulmonary disease with (acute) lower respiratory infection; J44.1 Chronic obstructive pulmonary disease with (acute) exacerbation; I48.0 Paroxysmal atrial fibrillation; M51.36 Other intervertebral disc degeneration, lumbar region; Z96.653 Presence of artificial knee joint, bilateral; E78.5 Hyperlipidemia, unspecified; Z86.718 Personal history of other venous thrombosis and embolism; Z87.19 Personal history of other diseases of the digestive system; Z98.890 Other specified postprocedural states; Z98.49 Cataract extraction status, unspecified eye; Z90.2 Acquired absence of lung [part of]; Z87.891 Personal history of nicotine dependence; Z79.2 Long term (current) use of antibiotics; Z79.01 Long term (current) use of anticoagulants; Z79.899 Other long term (current) drug therapy
CPT/HCPCS: 36415; 71046; 80048; 80053; 80069; 82803; 83735; 84145; 85025; 85027; 93005; 93010; 93306; 94640; 94644; 94645; 94664; 94762; 96361; 96365; 96366; 96375; 96376; 99285-25; A9270; G0378; J0456; J0696; J2919; J7030; J7050; J7512

== ENCOUNTER → 2024-08-24 | Outpatient (CLI) | payer MEDICARE, BC ==
[~2024-08-24] MED LIST changes: +AZIT500 PO; +CEFP200 PO; +CHLORPHENIRAMINE; +DILT180 PO; +HYDROCODONE; +PRED20 PO; +SPIRIVA RESPIMAT4 G3 IH
[2024-08-24 10:00] LABS: BASOPHILS ABSOLUTE AUTO 0.04 K/mm3 (0.00-0.23); BASOPHILS PERCENT AUTO 1 % (0-2); EOSINOPHILS ABSOLUTE AUTO 0.16 K/mm3 (0.00-0.68); EOSINOPHILS PERCENT AUTO 2 % (0-6); Hematocrit 38.2 % (33.0-51.0); Hemoglobin 12.8 g/dL (11.5-16.0); IMMATURE GRAN ABSOLUTE AUTO 0.03 K/mm3 (0.00-0.10); IMMATURE GRAN PERCENT AUTO 0 % (0-1); LYMPHOCYTES ABSOLUTE AUTO 1.37 K/mm3 (0.84-5.20); LYMPHOCYTES PERCENT AUTO 20 % (21-46); MONOCYTES ABSOLUTE AUTO 0.98 K/mm3 (0.16-1.47); MONOCYTES PERCENT AUTO 14 % (4-13); Mean Corpuscular HGB 30.7 pg (26.0-34.0); Mean Corpuscular HGB Conc 33.5 g/dL (31.5-36.5); Mean Corpuscular Volume 92 fL (80-100); Mean Platelet Volume 9.7 fL (9.1-12.4); NEUTROPHILS ABSOLUTE AUTO 4.28 K/mm3 (1.96-9.15); NEUTROPHILS PERCENT AUTO 62 % (41-73); Platelet Count 236 K/mm3 (150-400); RDW Standard Deviation 53.6 fL (35.1-46.3); Red Blood Cell Count 4.17 M/mm3 (3.80-5.20); White Blood Cell Count 6.86 K/mm3 (4.00-11.30)
[2024-08-24 10:14] LABS: Albumin/Globulin Ratio 0.8 (0.8-1.8); Bilirubin, Total 0.5 mg/dL (0.1-1.0); Bun/Creatinine Ratio 21.3 (12.0-20.0); Creatinine, Blood 0.75 mg/dL (0.40-1.00); Globulin, Blood 3.6 g/dL (2.2-4.0); Potassium, Blood 3.7 mmol/L (3.5-5.5); Total Protein, Blood 6.6 g/dL (6.4-8.2)
== END ==
LOC: LAB 09:56 → LAB SHORT 09:56
PROVIDERS: Physician Assistant
DX: R50.9 Fever, unspecified (principal)
CPT/HCPCS: 80053; 83605; 85025